=== PATIENT | male | born 1980 | race African-American/Black ===

== ENCOUNTER 2017-02-09 23:00 | Emergency (ER) | payer OTHER ==
[~2017-02-09] VITALS: Ht 188 cm; Wt 90.7 kg
[2017-02-09] MEDS ORDERED: OLANZAPINE 5 MG TABLET ONE (23:09)
[2017-02-09] MEDS ORDERED: LORAZEPAM 1 MG TABLET ONE (23:10)
--- NOTE | 2017-02-09 23:29 | NUR ---
PT HEARING VOICES AND PT STATES HE WANTS TO KILL SOMEONE BUT IS NOT SPECIFIC ON WHO, PT DENIES SI, PT BREATHING EFFORTLESSLY ON ROOM AIR, PT ACTING PARANOID, PT IN BED, MD MADE AWARE WILL CONTINUE TO MONITOR.
[2017-02-09] MEDS ORDERED: LORAZEPAM 1 MG TABLET PO ONE (23:30)
[2017-02-09] MEDS ORDERED: OLANZAPINE 5 MG/TAB.RAPDIS PO ONE (23:30)
[2017-02-09 23:34] LABS: BASOPHILS # (AUTO) 0.1 /CMM (0.0-0.2); BASOPHILS % (AUTO) 0.6 % (0.0-2.0); EOSINOPHILS # (AUTO) 0.2 /CMM (0.0-0.7); EOSINOPHILS % (AUTO) 1.4 % (0.0-6.0); HEMATOCRIT 41 % (39-51); HEMOGLOBIN 14.6 g/dL (13.5-17.5); LYMPHOCYTES # (AUTO) 2.8 /CMM (0.8-4.8); LYMPHOCYTES % (AUTO) 24.5 % (20.0-44.0); MEAN CORPUSCULAR HEMOGLOBIN 28 PG (26.0-33.0); MEAN CORPUSCULAR HGB CONC 35 g/dl (31.0-36.0); MEAN CORPUSCULAR VOLUME 79 fL (80-96); MONOCYTES # (AUTO) 0.8 /CMM (0.1-1.30); MONOCYTES % (AUTO) 6.6 % (2.0-12.0); NEUTROPHILS # (AUTO) 7.8 /CMM (1.8-8.9); NEUTROPHILS % (AUTO) 66.9 % (43.0-81.0); PLATELET COUNT (AUTO) 332 /CMM (150-450); RDW COEFFICIENT OF VARIATION 18.4 (11.5-15.0); RED BLOOD CELL COUNT(AUTO) 5.24 MIL/uL (4.5-6.0); WHITE BLOOD COUNT (AUTO) 11.6 K/uL (4.3-11.0)
[2017-02-09 23:44] LABS: CARBON DIOXIDE 30 mmol/L (21-32); CHLORIDE 103 mmol/L (98-107); CREATININE 1.5 mg/dL (0.6-1.3); GFR 65 mL/min (>60); GLUCOSE 113 mg/dL (74-106); POTASSIUM 3.5 mmol/L (3.5-5.1); SODIUM SERUM 140 mmol/L (136-145); UREA NITROGEN, BLOOD 9 mg/dL (7-18)
[2017-02-09 23:46] LABS: ALCOHOL, BLOOD < 3 mg/dL (0-0)
--- NOTE | 2017-02-10 01:22 | NUR ---
PT SLEEPING IN NO APPARENT DISTRESS, VSS STABLE MD MADE AWARE WILL CONTINUE TO MONITOR.
[2017-02-10 01:34] LABS: PHENCYCLIDINE SCREEN,URINE NEGATIVE (NEGATIVE)
[2017-02-10 01:36] LABS: CANNABINOID, URINE POSITIVE (NEGATIVE)
--- NOTE | 2017-02-10 01:39 | NUR ---
ART AT BEDSIDE FOR EVAL
[2017-02-10 07:16] VITALS: BP 126/72
--- NOTE | 2017-02-10 07:17 | NUR ---
Patient discharged to home in stable condition. Written and verbal after care instructions given. Patient verbalizes understanding of instruction. ambulatory with steady gait. pt denies SI HI, states "i am all better now, i wanna leave". no further complaints.
== END 2017-02-10 07:17 | disposition home or self-care (01) ==
LOC: ER 23:04
DX: F23 Brief psychotic disorder (principal); R45.850 Homicidal ideations; F20.9 Schizophrenia, unspecified; F31.9 Bipolar disorder, unspecified
CPT/HCPCS: 36415; 80048; 80305; 85025; 99284; A4606; C1751; G0480; Z7610